=== PATIENT | male | born 1970 | race Caucasian/White ===

== ENCOUNTER 2018-02-13 15:44 | Inpatient (IN) | payer OTHER ==
[~2018-02-13] VITALS: Ht 170.2 cm; Wt 104.4 kg
[~2018-02-13 15:44] MED LIST: ATENOLOL25 MG PO; CLOPIDOGREL75 M1 PO; METOPROLOL SUCC25 M1 PO
[2018-02-13 16:44] LABS: BASOPHIL % 0.4 % (0-2); PLATELET COUNT 174 x10^3mcL (130-400); RED CELL DISTRIBUTION WIDTH 13.4 % (11.5-14.5)
[2018-02-13 16:52] LABS: CALCIUM 8.5 mg/dL (8.5-10.1); CARBON DIOXIDE 26.5 mmol/L (21-32); CHLORIDE SERUM 104 mmol/L (98-107); CREATININE SERUM 0.8 mg/dL (0.7-1.3); GFR1 > 60 mL/min; GLUCOSE SERUM 255 mg/dL (74-106); POTASSIUM SERUM 3.7 mmol/L (3.5-5.1); SODIUM SERUM 139 mmol/L (136-145)
[2018-02-13 17:05] LABS: ALBUMIN 3.8 g/dL (3.4-5.0); ALKALINE PHOSPHATASE 85 U/L (46-116); ALT/SGPT 42 U/L (16-63); AMYLASE 60 U/L (25-115); AST/SGOT 21 U/L (15-37); BILIRUBIN TOTAL 0.38 mg/dL (0.20-1.00); CHOLESTEROL 163 mg/dL (<200); HDL CHOLESTEROL 42 mg/dL (40-60); LIPASE 167 IU/L (73-393); MAGNESIUM 1.9 mg/dL (1.8-2.4); T4(THYROXINE) 8.6 ug/dL (4.7-13.3); TOTAL PROTEIN, SERUM 7.4 g/dL (6.4-8.2)
[2018-02-13 17:15] LABS: microscopic required? NO
[2018-02-13 17:23] LABS: UA SPECIFIC GRAVITY 1.015 (1.005-1.035); urine erythrocyte NEGATIVE (NEGATIVE)
[2018-02-13 17:39] LABS: AMPHETAMINE QUAL UR NONE DETECTED (See below)
[2018-02-13] MEDS ORDERED: GEMFIBROZIL600 MG PO (19:37)
[2018-02-13] MEDS ORDERED: XARELTO10 M1 PO (19:37)
[2018-02-13] MEDS ORDERED: SOTALOL HCL240 MG PO (19:37)
[2018-02-13] MEDS ORDERED: METFORMIN HCL1000 MG PO (19:38)
[2018-02-13 19:51] LABS: PHOSPHOROUS 2.6 mg/dL (2.5-4.9)
[2018-02-13 20:15] VITALS: BP 115/77
[2018-02-13 20:34] LABS: CHOLESTEROL/HDL RATIO 4.1
[2018-02-14 05:37] VITALS: BP 106/63
[2018-02-14 07:50] LABS: CALCIUM 8.2 mg/dL (8.5-10.1); CARBON DIOXIDE 29.3 mmol/L (21-32); CHLORIDE SERUM 107 mmol/L (98-107); CREATININE SERUM 0.6 mg/dL (0.7-1.3); GFR1 > 60 mL/min; GLUCOSE SERUM 149 mg/dL (74-106); POTASSIUM SERUM 4.1 mmol/L (3.5-5.1); SODIUM SERUM 142 mmol/L (136-145)
[2018-02-14 07:55] LABS: BASOPHIL % 0.6 % (0-2); PLATELET COUNT 169 x10^3mcL (130-400); RED CELL DISTRIBUTION WIDTH 13.9 % (11.5-14.5)
[2018-02-14 08:00] LABS: T3 TOTAL 1.08 ng/mL
[2018-02-14 08:46] VITALS: BP 102/69
[2018-02-14 09:06] LABS: FREE T4 1.08 ng/dL (0.76-1.46); FREE THYROXINE INDEX 2.7 ug/dL (1.4-4.5); T4(THYROXINE) 7.6 ug/dL (4.7-13.3)
[2018-02-14 13:03] VITALS: BP 137/79
[2018-02-14 15:10] VITALS: BP 137/79
== END 2018-02-14 15:48 | disposition home or self-care (01) | DRG 201 ==
LOC: ED 15:44 → DU 18:46
PROVIDERS: Emergency Medicine; Family Medicine
DX: I48.0 Paroxysmal atrial fibrillation (principal); E11.65 Type 2 diabetes mellitus with hyperglycemia; E78.5 Hyperlipidemia, unspecified; F10.20 Alcohol dependence, uncomplicated; I10 Essential (primary) hypertension; Z79.84 Long term (current) use of oral hypoglycemic drugs; Z79.01 Long term (current) use of anticoagulants
CPT/HCPCS: 83880; 84439; 85378; G0480; J3490; J7030; Q0092

== ENCOUNTER 2019-08-17 18:23 | Emergency (ER) | payer SELFPAY ==
[~2019-08-17] VITALS: Ht 170.2 cm; Wt 98.4 kg
[~2019-08-17 18:23] MED LIST changes: +GEMFIBROZIL600 MG PO; +METFORMIN HCL1000 MG PO; +SOTALOL HCL240 MG PO; +XARELTO10 M1 PO
[2019-08-17 18:31] VITALS: Ht 170.2 cm; Wt 98.4 kg
[2019-08-17 19:30] LABS: BASOPHIL % 0.3 % (0-2); PLATELET COUNT 208 x10^3mcL (130-400)
[2019-08-17 19:35] LABS: CALCIUM 8.9 mg/dL (8.5-10.1); CARBON DIOXIDE 30.8 mmol/L (21-32); CHLORIDE SERUM 100 mmol/L (98-107); CREATININE SERUM 0.7 mg/dL (0.7-1.3); GFR1 > 60 mL/min; GLUCOSE SERUM 352 mg/dL (74-106); POTASSIUM SERUM 4.1 mmol/L (3.5-5.1); SODIUM SERUM 136 mmol/L (136-145)
[2019-08-17 19:40] LABS: ALBUMIN 3.6 g/dL (3.4-5.0); ALKALINE PHOSPHATASE 99 U/L (46-116); ALT/SGPT 21 U/L (16-63); AST/SGOT 11 U/L (15-37); BILIRUBIN TOTAL 0.62 mg/dL (0.20-1.00); TOTAL PROTEIN, SERUM 7.5 g/dL (6.4-8.2)
[2019-08-17 21:53] VITALS: BP 146/75
[2019-08-18] MEDS ORDERED: ASPIRIN FOR CHI81 M1 PO (11:06)
== END 2019-08-17 21:53 | disposition home or self-care (01) ==
LOC: ED 18:23
PROVIDERS: Emergency Medicine
DX: L02.11 Cutaneous abscess of neck (principal); E11.65 Type 2 diabetes mellitus with hyperglycemia; I10 Essential (primary) hypertension; E78.00 Pure hypercholesterolemia, unspecified
CPT/HCPCS: J2001; J2543; J3370; J7030; J7050

== ENCOUNTER 2019-08-18 06:24 | Inpatient (IN) | payer SELFPAY ==
[~2019-08-18] VITALS: Ht 175.3 cm; Wt 98.4 kg
[2019-08-18 07:11] LABS: BASOPHIL % 0.2 % (0-2); PLATELET COUNT 202 x10^3mcL (130-400); RED CELL DISTRIBUTION WIDTH 12.7 % (11.5-14.5)
[2019-08-18 07:45] LABS: T3 TOTAL 1.11 ng/mL
[2019-08-18 07:55] LABS: FREE T4 1.26 ng/dL (0.76-1.46); FREE THYROXINE INDEX 2.8 ug/dL (1.4-4.5)
[2019-08-18 07:56] LABS: CHLORIDE SERUM 103 mmol/L (98-107); POTASSIUM SERUM 4.6 mmol/L (3.5-5.1); SODIUM SERUM 137 mmol/L (136-145)
[2019-08-18 07:57] LABS: ALBUMIN 2.8 g/dL (3.4-5.0); ALKALINE PHOSPHATASE 63 U/L (46-116); ALT/SGPT 19 U/L (16-63); AST/SGOT 9 U/L (15-37); BILIRUBIN TOTAL 0.84 mg/dL (0.20-1.00); CALCIUM 8.1 mg/dL (8.5-10.1); CARBON DIOXIDE 30.6 mmol/L (21-32); CREATININE SERUM 0.7 mg/dL (0.7-1.3); GFR1 > 60 mL/min; GLUCOSE SERUM 297 mg/dL (74-106); MAGNESIUM 1.8 mg/dL (1.8-2.4); TOTAL PROTEIN, SERUM 6.4 g/dL (6.4-8.2)
[2019-08-18] MEDS ORDERED: ASPIRIN FOR CHI81 M1 PO (11:06)
[2019-08-18 12:47] LABS: AMPHETAMINE QUAL UR NONE DETECTED (See below)
[2019-08-18 12:51] LABS: PHOSPHOROUS 2.9 mg/dL (2.5-4.9)
[2019-08-18 12:52] LABS: CHOLESTEROL/HDL RATIO 3.1
[2019-08-18 13:48] VITALS: BP 115/70
[2019-08-18 16:41] VITALS: BP 124/70
[2019-08-18 21:08] VITALS: BP 125/75
[2019-08-19 05:51] VITALS: BP 124/75
[2019-08-19 06:52] LABS: CALCIUM 8.1 mg/dL (8.5-10.1); CARBON DIOXIDE 29.4 mmol/L (21-32); CHLORIDE SERUM 103 mmol/L (98-107); CREATININE SERUM 0.6 mg/dL (0.7-1.3); GFR1 > 60 mL/min; GLUCOSE SERUM 234 mg/dL (74-106); MAGNESIUM 1.9 mg/dL (1.8-2.4); POTASSIUM SERUM 4.5 mmol/L (3.5-5.1); SODIUM SERUM 137 mmol/L (136-145)
[2019-08-19 06:58] LABS: BASOPHIL % 0.4 % (0-2); PLATELET COUNT 203 x10^3mcL (130-400)
[2019-08-19 07:32] VITALS: BP 121/67
[2019-08-19 11:46] VITALS: BP 135/77
[2019-08-19 15:41] VITALS: BP 126/71
[2019-08-19 20:17] VITALS: BP 119/70
[2019-08-20 04:22] VITALS: BP 120/68
[2019-08-20 06:31] LABS: BASOPHIL % 0.5 % (0-2); PLATELET COUNT 238 x10^3mcL (130-400)
[2019-08-20 06:59] LABS: CALCIUM 8.9 mg/dL (8.5-10.1); CARBON DIOXIDE 29.2 mmol/L (21-32); CHLORIDE SERUM 103 mmol/L (98-107); CREATININE SERUM 0.6 mg/dL (0.7-1.3); GFR1 > 60 mL/min; GLUCOSE SERUM 217 mg/dL (74-106); POTASSIUM SERUM 4.6 mmol/L (3.5-5.1); SODIUM SERUM 138 mmol/L (136-145)
[2019-08-20 08:06] VITALS: BP 113/77
[2019-08-20] MEDS ORDERED: XARELTO10 M1 PO (10:51)
[2019-08-20] MEDS ORDERED: GEMFIBROZIL600 MG PO (10:51)
[2019-08-20] MEDS ORDERED: BET80 PO (10:53)
[2019-08-20 11:31] VITALS: BP 119/6
[2019-08-20 12:07] VITALS: BP 119/76
[2019-08-23 11:21] VITALS: Ht 175.3 cm; Wt 98.4 kg
== END 2019-08-20 13:56 | disposition home or self-care (01) | DRG 310 ==
LOC: ED 06:24 → DU 11:34
PROVIDERS: Emergency Medicine; ADMIT Internal Medicine
DX: I48.0 Paroxysmal atrial fibrillation (principal); I10 Essential (primary) hypertension; E78.00 Pure hypercholesterolemia, unspecified; E11.65 Type 2 diabetes mellitus with hyperglycemia; E78.5 Hyperlipidemia, unspecified; Z79.01 Long term (current) use of anticoagulants; Z23 Encounter for immunization; Z79.899 Other long term (current) drug therapy
CPT/HCPCS: 82962; 84439; 90658; G0378; J1815; J7030; Q0092

== ENCOUNTER 2019-08-23 15:18 | Emergency (ER) | payer SELFPAY ==
[~2019-08-23] VITALS: Ht 172.7 cm; Wt 99.3 kg
[~2019-08-23 15:18] MED LIST changes: +ASPIRIN FOR CHI81 M1 PO; +BET80 PO
[2019-08-23 15:25] VITALS: BP 147/74; Ht 172.7 cm; Wt 99.3 kg
== END 2019-08-23 16:15 | disposition home or self-care (01) ==
LOC: ED 15:18
DX: L02.11 Cutaneous abscess of neck (principal); Z48.01 Encounter for change or removal of surgical wound dressing